=== PATIENT | female | born 1955 | race Caucasian/White ===

== ENCOUNTER 2016-06-16 20:14 | Inpatient (IN) | payer MEDICARE, MEDICAID ==
[~2016-06-16] VITALS: Ht 165.1 cm; Wt 135.2 kg
[2016-06-16 21:04] LABS: HEMATOCRIT. 31.5 % (36.0-48.0); HEMOGLOBIN. 9.8 g/dL (12.0-16.0); MEAN CORPUSCULAR HEMOGLOBIN 26.2 pg (28.0-32.0); MEAN CORPUSCULAR HGB CONC 31.2 g/dL (31.0-37.0); MEAN CORPUSCULAR VOLUME 83.8 fL (81.0-99.0); MEAN PLATELET VOLUME 8.1 fl (7.4-10.4); PLATELET 310 x1000/uL (130-400); RED BLOOD CELL COUNT 3.76 mill/uL (4.2-5.4); RED CELL DISTRIBUTION WIDTH 15.2 % (11.6-14.6); WHITE BLOOD COUNT 18.8 x1000/uL (4.5-11.0)
[2016-06-16 21:05] LABS: DIFFERENTIAL COMMENT 1
[2016-06-16 21:18] LABS: ALANINE AMINOTRANSFERASE 19 IU/L (13-61); ALBUMIN 3.4 g/dL (3.4-5.0); ANION GAP 14; CARBON DIOXIDE 25 mEq/L (21-32); CHLORIDE 101 mEq/L (98-107); INDEX HEMOLYSI 1 (1-3); INDEX ICTERIC 1 (1-4); INDEX LIPEMIC 1 (1-3); UREA NITROGEN BLOOD 40 mg/dL (7-21); eGFR 27 mL/min (>60)
[2016-06-16 21:56] LABS: ANISOCYTOSIS 1+; PLATELET ESTIMATE NORMAL
[2016-06-17] VITALS (7 sets, daily range): BP systolic 110–134; BP diastolic 62–84
[2016-06-17 00:03] LABS: CLARITY URINE CLOUDY (CLEAR); COLOR URINE YELLOW (YELLOW); GLUCOSE URINE NEGATIVE (NEGATIVE); KETONES URINE NEGATIVE (NEGATIVE); LEUKOCYTE ESTERASE URINE 3+ (NEGATIVE); NITRITE URINE NEGATIVE (NEGATIVE); OCCULT BLOOD URINE 1+ (NEGATIVE); PH URINE 6.5 (4.5-8.0); PROTEIN URINE NEGATIVE (NEGATIVE); SPECIFIC GRAVITY URINE 1.007 (1.005-1.030); UROBILINOGEN URINE 0.2 E.U./dL (0.2-1.0)
[2016-06-17] MEDS ORDERED: CEFTRIAXONE 2 G PREMIX 50 ML IV ONE (00:15)
[2016-06-17] MEDS ORDERED: SODIUM CHLORIDE 0.9% 1,000 ML IV ONE (00:45)
[2016-06-17 01:35] LABS: SQUAMOUS EPITHELIAL CELL URINE RARE /lpf (RARE/1+)
[2016-06-17 01:36] LABS: BACTERIA URINE 2+; RBC URINE 0-2 /hpf (0-2); WBC URINE 25-50 /hpf (0-2)
[2016-06-17] MEDS ORDERED: SIMV20TA6 PO (01:57)
[2016-06-17] MEDS ORDERED: ASPI-1035 PO (01:58)
[2016-06-17] MEDS ORDERED: OCD PO (02:21)
[2016-06-17] MEDS ORDERED: BENA20TA3 PO (02:21)
[2016-06-17] MEDS ORDERED: GLIP10TA10 PO (02:21)
[2016-06-17] MEDS ORDERED: RANI150C12 PO (02:21)
[2016-06-17] MEDS ORDERED: LISI2.5T47 PO (02:21)
[2016-06-17] MEDS ORDERED: ACET-2178 PO (02:21)
[2016-06-17] MEDS ORDERED: METF-246 PO (02:21)
[2016-06-17] MEDS ORDERED: LORA10TA7 PO (02:21)
[2016-06-17] MEDS ORDERED: NAPR-681 PO (02:21)
[2016-06-17] MEDS ORDERED: ALBU6.7H INH (02:21)
[2016-06-17] MEDS ORDERED: PIOG45TA PO (02:21)
[2016-06-17] MEDS ORDERED: DEXT 5%/0.45% NACL 1000ML 1,000 ML IV SCH (02:28)
[2016-06-17] MEDS ORDERED: DEXTROSE 50% WATER 50ML SYRINGE IV PRN (02:30)
[2016-06-17] MEDS ORDERED: MAGNESIUM/ALUMINUM HYDROXIDE/SIMETHICONE 30ML UDC PO PRN (02:30)
[2016-06-17] MEDS ORDERED: DIPHENHYDRAMINE 50MG/ML VIAL IV PRN (02:30)
[2016-06-17] MEDS ORDERED: CLONIDINE 0.1MG TABLET PO PRN (02:30)
[2016-06-17] MEDS ORDERED: ONDANSETRON HCL 4MG/2ML VIAL IV PRN (02:30)
[2016-06-17] MEDS ORDERED: LEVOFLOXACIN 500MG PREMIX 100 ML IV NR (04:00)
[2016-06-17] MEDS: BLOOD SUGAR DIAGNOSTIC STRIP TEST SCH ×4 (07:01→20:09)
[2016-06-17] MEDS: INSULIN LISPRO 100 UNITS/ML SUBCUT SCH ×4 (07:08→20:09)
[2016-06-17] MEDS: ACETAMINOPHEN 325MG TABLET PO PRN (18:34)
[2016-06-18] VITALS: BP 123/70
[2016-06-18] MEDS: LEVOFLOXACIN 250MG PREMIX 50 ML IV SCH (02:23)
[2016-06-18 03:18] VITALS: BP 103/57
[2016-06-18] MEDS: BLOOD SUGAR DIAGNOSTIC STRIP TEST SCH ×4 (06:32→20:11)
[2016-06-18 07:04] LABS: BASOPHILS % 0.3 % (0.0-2.0); EOSINOPHILS % 3.1 % (0.0-5.0); HEMATOCRIT. 29.2 % (36.0-48.0); HEMOGLOBIN. 9.4 g/dL (12.0-16.0); LYMPHOCYTES % 18.7 % (20.0-50.0); MEAN CORPUSCULAR VOLUME 84.3 fL (81.0-99.0); MEAN PLATELET VOLUME 8.5 fl (7.4-10.4); MONOCYTES % 9.4 % (2.0-8.0); NEUTROPHILS % 68.5 % (40.0-76.0); PLATELET 315 x1000/uL (130-400); RED BLOOD CELL COUNT 3.47 mill/uL (4.2-5.4); RED CELL DISTRIBUTION WIDTH 15.3 % (11.6-14.6)
[2016-06-18] MEDS: INSULIN LISPRO 100 UNITS/ML SUBCUT SCH ×4 (07:50→20:11)
[2016-06-18 08:00] VITALS: BP 110/67
[2016-06-18 08:14] LABS: MAGNESIUM 2.1 mg/dL (1.8-2.4)
[2016-06-18 12:00] VITALS: BP 112/70
[2016-06-18] MEDS ORDERED: BISACODYL 10MG SUPP PR NR (15:42)
[2016-06-18 16:00] VITALS: BP 105/69
[2016-06-18] MEDS: SODIUM CHLORIDE 0.9% 1,000 ML IV SCH (17:51)
[2016-06-18 20:00] VITALS: BP 108/72
[2016-06-18] MEDS: ACETAMINOPHEN 325MG TABLET PO PRN (23:45)
[2016-06-19] VITALS: BP 110/66
[2016-06-19] MEDS: LEVOFLOXACIN 250MG PREMIX 50 ML IV SCH (02:06)
[2016-06-19] MEDS: SODIUM CHLORIDE 0.9% 1,000 ML IV SCH ×2 (02:06→11:45)
[2016-06-19 04:05] VITALS: BP 105/62
[2016-06-19] MEDS: BLOOD SUGAR DIAGNOSTIC STRIP TEST SCH ×2 (06:24→12:24)
[2016-06-19 06:50] LABS: BASOPHILS % 0.5 % (0.0-2.0); EOSINOPHILS % 5.7 % (0.0-5.0); LYMPHOCYTES % 23.9 % (20.0-50.0); MEAN CORPUSCULAR HEMOGLOBIN 26.6 pg (28.0-32.0); MEAN CORPUSCULAR VOLUME 83.3 fL (81.0-99.0); MEAN PLATELET VOLUME 8.5 fl (7.4-10.4); MONOCYTES % 9.3 % (2.0-8.0); NEUTROPHILS % 60.6 % (40.0-76.0); PLATELET 325 x1000/uL (130-400); RED BLOOD CELL COUNT 3.37 mill/uL (4.2-5.4); RED CELL DISTRIBUTION WIDTH 15.3 % (11.6-14.6); WHITE BLOOD COUNT 8.9 x1000/uL (4.5-11.0)
[2016-06-19] MEDS: INSULIN LISPRO 100 UNITS/ML SUBCUT SCH ×2 (07:49→12:26)
[2016-06-19 08:00] VITALS: BP 104/52
[2016-06-19 08:02] LABS: CALCIUM 9.3 mg/dL (8.5-10.1)
[2016-06-19 12:00] VITALS: BP 122/68
[2016-06-19 13:56] VITALS: BP 122/68
== END 2016-06-19 15:15 | disposition home or self-care (01) | DRG 871 ==
LOC: ER 20:15 → 6WST 23:31
PROVIDERS: ADMIT Internal Medicine; ATTEND Internal Medicine
DX: A41.9 Sepsis, unspecified organism (principal); G93.41 Metabolic encephalopathy; N17.9 Acute kidney failure, unspecified; N39.0 Urinary tract infection, site not specified; Z68.42 Body mass index [BMI] 45.0-49.9, adult; E11.649 Type 2 diabetes mellitus with hypoglycemia without coma; E66.01 Morbid (severe) obesity due to excess calories; D64.9 Anemia, unspecified; M19.90 Unspecified osteoarthritis, unspecified site; I12.9 Hypertensive chronic kidney disease with stage 1 through stage 4 chronic kidney disease, or unspecified chronic kidney disease; N18.9 Chronic kidney disease, unspecified; E78.00 Pure hypercholesterolemia, unspecified; I25.10 Atherosclerotic heart disease of native coronary artery without angina pectoris; J45.909 Unspecified asthma, uncomplicated; K21.9 Gastro-esophageal reflux disease without esophagitis; Z82.49 Family history of ischemic heart disease and other diseases of the circulatory system; Z83.3 Family history of diabetes mellitus; Z87.442 Personal history of urinary calculi; Z98.51 Tubal ligation status
CPT/HCPCS: 36415; 71010; 74000; 80048; 80053; 81001; 81003; 82962; 83735; 85025; 87040; 87086; 93005; 96365; 99285; J0696; J1815; J1956; J3490; J7030; J7050

== ENCOUNTER 2018-06-08 05:03 | Inpatient (IN) | payer MEDICARE, MEDICAID ==
[~2018-06-08] VITALS: Ht 162.6 cm; Wt 133.8 kg
[~2018-06-08 05:03] MED LIST: ACET-2178 PO; ALBU6.7H INH; ASPI-1159 PO; BENA20TA10 PO; LORA10TA7 PO; METF-416 PO; NAPR-681 PO; OCD PO; PIOG45TA5 PO; RANI150C12 PO; SIMV20TA6 PO
[2018-06-08] MEDS ORDERED: METHYLPREDNISOLONE SOD SUCC 125 MG/2 ML VIAL IV STA (07:02)
[2018-06-08 07:14] LABS: BASOPHILS % 0.6 % (0.0-2.0); EOSINOPHILS % 4.1 % (0.0-5.0); HEMATOCRIT. 33.1 % (36.0-48.0); HEMOGLOBIN. 10.5 g/dL (12.0-16.0); LYMPHOCYTES % 21.8 % (20.0-50.0); MEAN CORPUSCULAR HEMOGLOBIN 27.1 pg (28.0-32.0); MEAN CORPUSCULAR VOLUME 85.3 fL (81.0-99.0); MEAN PLATELET VOLUME 8.1 fl (7.4-10.4); NEUTROPHILS % 66.5 % (40.0-76.0); PLATELET 252 x1000/uL (130-400); RED BLOOD CELL COUNT 3.88 mill/uL (4.2-5.4); RED CELL DISTRIBUTION WIDTH 15.2 % (11.6-14.6)
[2018-06-08] MEDS ORDERED: LEVOFLOXACIN 750MG PREMIX 150 ML IV ONE (07:15)
[2018-06-08] MEDS ORDERED: IPRATROPIUM/ALBUTEROL 0.5-3(2.5)MG/3ML NEB HHN ONE (07:15)
[2018-06-08 07:19] LABS: CHLORIDE 109 mEq/L (98-107)
[2018-06-08 07:23] LABS: ETHANOL BLOOD < 10 mg/dL
[2018-06-08 07:32] LABS: PARTIAL THROMBOPLASTIN TIME 29.6 sec (23.4-31.0); PROTHROMBIN TIME 10.4 sec (9.1-11.1)
[2018-06-08 08:31] LABS: BG BASE EXCESS -2.4 mmol/L (-2.0-2.0); BG CARBOXYHEMOGLOBIN 0.4 % (0.5-1.5); BG DEOXYHEMOGLOBIN 4.3 % (0.0-5.0); BG FRACTION INSPIRED OXYGEN 21; BG HCO3 ACT 22.3 mmol/L (22.0-26.0); BG OXYGEN SATURATION 95.7 % (92.0-98.5); BG OXYHEMOGLOBIN 95.3 % (94.0-97.0); BG PCO2 38.1 mmHg (35.0-45.0); BG PH 7.386 (7.350-7.450); BG PO2 84.7 mmHg (75.0-100.0); BG SAMPLE SITE RIGHT RADIAL; BG TOTAL HEMOGLOBIN 10.8 g/dL (12.0-18.0); BG VENT MODE ROOM AIR
[2018-06-08 11:38] LABS: *AMPHETAMINES SCREEN URINE NEGATIVE (NEGATIVE); *BARBITURATES SCREEN URINE NEGATIVE (NEGATIVE); *COCAINE SCREEN URINE NEGATIVE (NEGATIVE); METHADONE URINE SCREEN NEGATIVE (NEGATIVE); OPIATES URINE SCREEN NEGATIVE (NEGATIVE)
[2018-06-08 11:39] LABS: *BENZODIAZEPINES SCREEN URINE NEGATIVE (NEGATIVE); CANNABINOID URINE SCREEN NEGATIVE (NEGATIVE); PHENCYCLIDINE URINE SCREEN NEGATIVE (NEGATIVE)
[2018-06-08 13:38] VITALS: BP 136/73
[2018-06-08] MEDS ORDERED: DEXTROSE 50% WATER 50ML SYRINGE IV PRN (13:45)
[2018-06-08 15:32] VITALS: BP 136/73
[2018-06-08] MEDS ORDERED: IPRATROPIUM/ALBUTEROL 0.5-3(2.5)MG/3ML NEB HHN PRN (15:45)
[2018-06-08 16:00] VITALS: BP 133/63
[2018-06-08] MEDS: BLOOD SUGAR DIAGNOSTIC STRIP TEST SCH ×2 (16:39→21:00)
[2018-06-08] MEDS: IPRATROPIUM/ALBUTEROL 0.5-3(2.5)MG/3ML NEB HHN SCH (18:00)
[2018-06-08] MEDS: LORATADINE 10MG TABLET PO SCH (18:03)
[2018-06-08] MEDS: INSULIN LISPRO 100 UNITS/ML SUBCUT SCH ×2 (18:05→22:39)
[2018-06-08 20:00] VITALS: BP 135/66
[2018-06-08] MEDS: BUDESONIDE 0.5MG/2ML NEB HHN SCH (20:38)
[2018-06-08] MEDS: ALBUTEROL (0.5%) 2.5MG/0.5ML NEB HHN SCH (20:38)
[2018-06-08] MEDS: GUAIFENESIN 600MG ER TABLET PO SCH (21:24)
[2018-06-08] MEDS: METHYLPREDNISOLONE SOD SUCC 40 MG/ML VIAL IV SCH (21:24)
[2018-06-08] MEDS: ENOXAPARIN 40MG/0.4ML SYR SUBCUT SCH (21:24)
[2018-06-08] MEDS: FAMOTIDINE 20MG/2ML VIAL IV SCH (21:24)
[2018-06-09] VITALS: BP 167/84
[2018-06-09] MEDS: IPRATROPIUM/ALBUTEROL 0.5-3(2.5)MG/3ML NEB HHN SCH ×4 (01:09→21:48)
[2018-06-09 04:00] VITALS: BP 156/81
[2018-06-09] MEDS: BLOOD SUGAR DIAGNOSTIC STRIP TEST SCH ×4 (07:27→21:00)
[2018-06-09] MEDS: INSULIN LISPRO 100 UNITS/ML SUBCUT SCH ×4 (07:35→21:21)
[2018-06-09] MEDS: ALBUTEROL (0.5%) 2.5MG/0.5ML NEB HHN SCH ×2 (07:35)
[2018-06-09] MEDS: BUDESONIDE 0.5MG/2ML NEB HHN SCH ×2 (07:36→21:48)
[2018-06-09 08:17] VITALS: BP 141/70
[2018-06-09] MEDS: FAMOTIDINE 20MG/2ML VIAL IV SCH ×2 (09:20→21:01)
[2018-06-09] MEDS: LORATADINE 10MG TABLET PO SCH (09:20)
[2018-06-09] MEDS: METHYLPREDNISOLONE SOD SUCC 40 MG/ML VIAL IV SCH (09:20)
[2018-06-09] MEDS: GUAIFENESIN 600MG ER TABLET PO SCH ×2 (09:20→21:01)
[2018-06-09] MEDS: ENOXAPARIN 40MG/0.4ML SYR SUBCUT SCH ×2 (09:22→21:03)
[2018-06-09 12:00] VITALS: BP_SYST 138; BP_SYST 154; BP_DIAS 77; BP_DIAS 79
[2018-06-09] MEDS: LEVOFLOXACIN 500MG TABLET PO SCH (14:51)
[2018-06-09 16:00] VITALS: BP 138/79
[2018-06-09 20:00] VITALS: BP 146/70
[2018-06-09 20:51] LABS: CHLORIDE 107 mEq/L (98-107)
[2018-06-09 21:05] LABS: BASOPHILS % 0.1 % (0.0-2.0); HEMATOCRIT. 32.9 % (36.0-48.0); HEMOGLOBIN. 10.4 g/dL (12.0-16.0); LYMPHOCYTES % 8.5 % (20.0-50.0); MEAN CORPUSCULAR HEMOGLOBIN 26.9 pg (28.0-32.0); MEAN CORPUSCULAR VOLUME 85.6 fL (81.0-99.0); MEAN PLATELET VOLUME 8.4 fl (7.4-10.4); MONOCYTES % 5.5 % (2.0-8.0); NEUTROPHILS % 85.9 % (40.0-76.0); PLATELET 262 x1000/uL (130-400); RED BLOOD CELL COUNT 3.85 mill/uL (4.2-5.4); RED CELL DISTRIBUTION WIDTH 15.4 % (11.6-14.6)
[2018-06-10] VITALS: BP 116/59
[2018-06-10] MEDS ORDERED: ALBUTEROL (0.083%) 2.5MG/3ML NEB ONE (01:19)
[2018-06-10] MEDS: IPRATROPIUM/ALBUTEROL 0.5-3(2.5)MG/3ML NEB HHN SCH ×3 (01:25→14:17)
[2018-06-10 04:00] VITALS: BP 133/75
[2018-06-10] MEDS: BLOOD SUGAR DIAGNOSTIC STRIP TEST SCH ×2 (06:07→11:45)
[2018-06-10] MEDS: INSULIN LISPRO 100 UNITS/ML SUBCUT SCH ×2 (06:13→12:49)
[2018-06-10 08:00] VITALS: BP 134/76
[2018-06-10] MEDS: BUDESONIDE 0.5MG/2ML NEB HHN SCH (08:31)
[2018-06-10] MEDS: GUAIFENESIN 600MG ER TABLET PO SCH (09:42)
[2018-06-10] MEDS: LORATADINE 10MG TABLET PO SCH (09:42)
[2018-06-10] MEDS: FAMOTIDINE 20MG/2ML VIAL IV SCH (09:42)
[2018-06-10] MEDS: ENOXAPARIN 40MG/0.4ML SYR SUBCUT SCH (09:43)
[2018-06-10 12:00] VITALS: BP 131/68
[2018-06-10] MEDS: LEVOFLOXACIN 500MG TABLET PO SCH (12:14)
[2018-06-10] MEDS ORDERED: P50 MT (12:28)
[2018-06-10 14:26] VITALS: BP 131/68
== END 2018-06-10 15:30 | disposition home or self-care (01) | DRG 871 ==
LOC: ER 05:03 → 5WST 08:53 → EDBEDREQ 09:02 → ENRESERV 10:25
PROVIDERS: ADMIT Family Medicine; ATTEND Family Medicine
DX: A41.9 Sepsis, unspecified organism (principal); J96.00 Acute respiratory failure, unspecified whether with hypoxia or hypercapnia; N39.0 Urinary tract infection, site not specified; J44.0 Chronic obstructive pulmonary disease with (acute) lower respiratory infection; J44.1 Chronic obstructive pulmonary disease with (acute) exacerbation; J45.901 Unspecified asthma with (acute) exacerbation; I50.32 Chronic diastolic (congestive) heart failure; Z68.43 Body mass index [BMI] 50.0-59.9, adult; J20.9 Acute bronchitis, unspecified; E11.9 Type 2 diabetes mellitus without complications; E55.9 Vitamin D deficiency, unspecified; K21.9 Gastro-esophageal reflux disease without esophagitis; B96.89 Other specified bacterial agents as the cause of diseases classified elsewhere; E66.01 Morbid (severe) obesity due to excess calories; I11.0 Hypertensive heart disease with heart failure; I25.10 Atherosclerotic heart disease of native coronary artery without angina pectoris; Z82.49 Family history of ischemic heart disease and other diseases of the circulatory system; Z95.5 Presence of coronary angioplasty implant and graft
CPT/HCPCS: 36415; 36600; 71045; 80305; 80320; 82375; 82805; 82962; 83605; 83880; 84484; 87077; 87186; 87804; 93005; 94640; 96374; 96375; 99285; J1650; J1815; J1956; J2920; J2930; J3490; J7611; J7620; J7626; G0480

== ENCOUNTER 2018-07-26 05:38 | Inpatient (IN) | payer MEDICARE, MEDICAID ==
[~2018-07-26] VITALS: Ht 170.2 cm; Wt 129.4 kg
[~2018-07-26 05:38] MED LIST changes: -NAPR-681 PO; +P50 MT
[2018-07-26] MEDS ORDERED: METHYLPREDNISOLONE SOD SUCC 125 MG/2 ML VIAL IV STA (05:41)
[2018-07-26 06:12] LABS: BASOPHILS % 0.2 % (0.0-2.0); EOSINOPHILS % 1.1 % (0.0-5.0); HEMATOCRIT. 33.5 % (36.0-48.0); HEMOGLOBIN. 10.5 g/dL (12.0-16.0); LYMPHOCYTES % 12.6 % (20.0-50.0); MEAN CORPUSCULAR HEMOGLOBIN 26.1 pg (28.0-32.0); MEAN CORPUSCULAR VOLUME 82.9 fL (81.0-99.0); MEAN PLATELET VOLUME 8.3 fl (7.4-10.4); MONOCYTES % 1.3 % (2.0-8.0); NEUTROPHILS % 84.8 % (40.0-76.0); PLATELET 301 x1000/uL (130-400); RED BLOOD CELL COUNT 4.04 mill/uL (4.2-5.4); RED CELL DISTRIBUTION WIDTH 15.4 % (11.6-14.6)
[2018-07-26 06:19] LABS: CHLORIDE 108 mEq/L (98-107)
[2018-07-26] MEDS ORDERED: NITROGLYCERIN OINT 1GM/INCH UDPKT TD ONE (06:30)
[2018-07-26] MEDS ORDERED: ASPIRIN 81MG TABLET PO ONE (06:30)
[2018-07-26] MEDS ORDERED: FUROSEMIDE 40MG/4ML VIAL IV ONE (06:30)
[2018-07-26 06:40] LABS: BG BASE EXCESS -4.9 mmol/L (-2.0-2.0); BG BILEVEL POS AIRWAY PRESSURE 15/5; BG CARBOXYHEMOGLOBIN 0.3 % (0.5-1.5); BG DEOXYHEMOGLOBIN 1.7 % (0.0-5.0); BG FRACTION INSPIRED OXYGEN 40; BG HCO3 ACT 19.5 mmol/L (22.0-26.0); BG METHEMOGLOBIN 0.5 % (0.0-1.5); BG OXYGEN SATURATION 98.3 % (92.0-98.5); BG OXYHEMOGLOBIN 97.5 % (94.0-97.0); BG PH 7.377 (7.350-7.450); BG PO2 134.6 mmHg (75.0-100.0); BG SAMPLE SITE RIGHT RADIAL; BG TOTAL HEMOGLOBIN 10.4 g/dL (12.0-18.0); BG VENT MODE MASK - BIPAP
[2018-07-26] MEDS ORDERED: LEVOFLOXACIN 750MG PREMIX 150 ML IV ONE (06:45)
[2018-07-26 07:42] LABS: PARTIAL THROMBOPLASTIN TIME 34.8 sec (23.4-31.0); PROTHROMBIN TIME 10.5 sec (9.6-11.0)
[2018-07-26 08:43] LABS: CLARITY URINE CLEAR (CLEAR); COLOR URINE YELLOW (YELLOW); KETONES URINE NEGATIVE (NEGATIVE); LEUKOCYTE ESTERASE URINE TRACE (NEGATIVE); NITRITE URINE NEGATIVE (NEGATIVE); OCCULT BLOOD URINE NEGATIVE (NEGATIVE); PROTEIN URINE NEGATIVE (NEGATIVE); SPECIFIC GRAVITY URINE 1.007 (1.005-1.030); UROBILINOGEN URINE 0.2 E.U./dL (0.2-1.0)
[2018-07-26] MEDS ORDERED: MAGNESIUM/ALUMINUM HYDROXIDE/SIMETHICONE 30ML UDC PO PRN (13:30)
[2018-07-26] MEDS ORDERED: HYDROCODONE/ACETAMINOPHEN 5/325MG TABLET PO PRN (13:30)
[2018-07-26] MEDS ORDERED: DOCUSATE SODIUM 100MG CAPSULE PO PRN (13:30)
[2018-07-26] MEDS ORDERED: ONDANSETRON HCL 4MG/2ML INJ IV PRN (13:30)
[2018-07-26] MEDS ORDERED: ACETAMINOPHEN 650MG SUPP PR PRN (13:30)
[2018-07-26] MEDS ORDERED: DIPHENHYDRAMINE 50MG/ML VIAL IV PRN (13:30)
[2018-07-26] MEDS ORDERED: IPRATROPIUM/ALBUTEROL 0.5-3(2.5)MG/3ML NEB INH PRN (13:30)
[2018-07-26] MEDS ORDERED: HYDROCODONE/ACETAMINOPHEN 10/325MG TABLET PO PRN (13:30)
[2018-07-26] MEDS ORDERED: CLONIDINE 0.1MG TABLET PO PRN (13:30)
[2018-07-26] MEDS ORDERED: ACETAMINOPHEN 325MG TABLET PO PRN (13:30)
[2018-07-26] MEDS ORDERED: NA PHOS,M-B/NA PHOS,DI-BA ENEMA 118ML PR PRN (13:30)
[2018-07-26] MEDS ORDERED: ACETAMINOPHEN 650MG/20.3ML UDC GT PRN (13:30)
[2018-07-26] MEDS ORDERED: DEXTROSE 50% WATER 50ML SYRINGE IV PRN (13:30)
[2018-07-26] MEDS ORDERED: GUAIFENESIN 200MG/10ML SUGAR FREE UDC PO PRN (13:30)
[2018-07-26 14:20] VITALS: BP 112/55
[2018-07-26 16:00] VITALS: BP 114/63
[2018-07-26] MEDS ORDERED: INFLUENZA VIRUS VACCINE(AFLURIA) 0.5ML SYR IM ONE (16:00)
[2018-07-26] MEDS ORDERED: PNEUMOCOCCAL 23-VAL P-SAC VAC 0.5 ML IM ONE (16:00)
[2018-07-26] MEDS: LORATADINE 10MG TABLET PO SCH (17:56)
[2018-07-26] MEDS: BLOOD SUGAR DIAGNOSTIC STRIP TEST SCH ×2 (17:56→20:51)
[2018-07-26] MEDS: SODIUM CHLORIDE 0.9% INJ 3ML FLUSH IVF SCH ×2 (17:56→21:24)
[2018-07-26] MEDS ORDERED: GLIP10TA10 PO (18:07)
[2018-07-26] MEDS ORDERED: NAPR-1176 PO (18:07)
[2018-07-26] MEDS: INSULIN LISPRO 100 UNITS/ML SUBCUT SCH ×2 (18:33→21:26)
[2018-07-26 18:48] LABS: CREATINE KINASE MB FRACTION 1.3 ng/mL (0.5-3.6)
[2018-07-26 20:00] VITALS: BP 120/61
[2018-07-26] MEDS: FAMOTIDINE 20MG/2ML VIAL IV SCH (20:46)
[2018-07-26] MEDS: AMOXICILLIN/POTASSIUM CLAVULANATE 500/125MG TAB PO SCH (20:47)
[2018-07-26] MEDS: ENOXAPARIN 30MG/0.3ML SYR SUBCUT SCH (20:47)
[2018-07-27] VITALS: BP 111/62
[2018-07-27] MEDS: BUDESONIDE 0.5MG/2ML NEB HHN SCH ×2 (00:17→09:49)
[2018-07-27 01:22] LABS: CREATINE KINASE 162 IU/L (26-192); CREATINE KINASE MB FRACTION 1.4 ng/mL (0.5-3.6)
[2018-07-27 04:00] VITALS: BP 110/63
[2018-07-27] MEDS: SODIUM CHLORIDE 0.9% INJ 3ML FLUSH IVF SCH ×3 (05:41→21:03)
[2018-07-27] MEDS: BLOOD SUGAR DIAGNOSTIC STRIP TEST SCH ×4 (06:10→20:55)
[2018-07-27] MEDS: INSULIN LISPRO 100 UNITS/ML SUBCUT SCH ×4 (06:34→21:06)
[2018-07-27 08:00] VITALS: BP 102/58
[2018-07-27] MEDS ORDERED: POTASSIUM CHLORIDE 20MEQ TABLET SR PO PRN (08:00)
[2018-07-27 08:07] LABS: HEMATOCRIT. 27.8 % (36.0-48.0); HEMOGLOBIN. 8.7 g/dL (12.0-16.0); MEAN CORPUSCULAR VOLUME 82.8 fL (81.0-99.0); MEAN PLATELET VOLUME 8.8 fl (7.4-10.4); PLATELET 299 x1000/uL (130-400); RED BLOOD CELL COUNT 3.35 mill/uL (4.2-5.4); RED CELL DISTRIBUTION WIDTH 15.1 % (11.6-14.6)
[2018-07-27 08:24] LABS: CHLORIDE 106 mEq/L (98-107)
[2018-07-27 08:35] LABS: LDL CHOLESTEROL 63 mg/dL (5-100)
[2018-07-27 08:37] LABS: HDL CHOLESTEROL 46 mg/dL (40-59)
[2018-07-27] MEDS: FUROSEMIDE 40MG/4ML VIAL IV SCH (09:00)
[2018-07-27] MEDS: AMOXICILLIN/POTASSIUM CLAVULANATE 500/125MG TAB PO SCH ×2 (09:34→20:52)
[2018-07-27] MEDS: LORATADINE 10MG TABLET PO SCH (09:34)
[2018-07-27] MEDS: ENOXAPARIN 30MG/0.3ML SYR SUBCUT SCH ×2 (09:35→20:53)
[2018-07-27] MEDS: IPRATROPIUM/ALBUTEROL 0.5-3(2.5)MG/3ML NEB INH SCH ×3 (09:49→21:39)
[2018-07-27 10:56] LABS: *AMPHETAMINES SCREEN URINE NEGATIVE (NEGATIVE)
[2018-07-27 10:57] LABS: *BARBITURATES SCREEN URINE NEGATIVE (NEGATIVE); *BENZODIAZEPINES SCREEN URINE NEGATIVE (NEGATIVE); *COCAINE SCREEN URINE NEGATIVE (NEGATIVE); METHADONE URINE SCREEN NEGATIVE (NEGATIVE); OPIATES URINE SCREEN NEGATIVE (NEGATIVE); PHENCYCLIDINE URINE SCREEN NEGATIVE (NEGATIVE)
[2018-07-27 10:58] LABS: CANNABINOID URINE SCREEN NEGATIVE (NEGATIVE)
[2018-07-27 12:00] VITALS: BP 127/64
[2018-07-27 14:25] LABS: PLATELET ESTIMATE NORMAL
[2018-07-27 16:00] VITALS: BP 119/63
[2018-07-27] MEDS ORDERED: DEXTROSE 50% WATER 50ML SYRINGE IV PRN (16:15)
[2018-07-27] MEDS: PIPERACILLIN/TAZ 2.25G PREMIX 50 ML IV SCH ×2 (16:33→22:33)
[2018-07-27] MEDS: FLUTICASONE/VILANTEROL 200-25 BLST.W.DEV ORI SCH (17:05)
[2018-07-27 20:00] VITALS: BP 113/52
[2018-07-27] MEDS: FAMOTIDINE 20MG/2ML VIAL IV SCH (20:52)
[2018-07-28] VITALS: BP 141/76
[2018-07-28] MEDS: IPRATROPIUM/ALBUTEROL 0.5-3(2.5)MG/3ML NEB INH SCH ×2 (01:42→08:26)
[2018-07-28 04:00] VITALS: BP 115/60
[2018-07-28] MEDS: PIPERACILLIN/TAZ 2.25G PREMIX 50 ML IV SCH ×2 (05:38→11:04)
[2018-07-28] MEDS: SODIUM CHLORIDE 0.9% INJ 3ML FLUSH IVF SCH (05:38)
[2018-07-28] MEDS: INSULIN LISPRO 100 UNITS/ML SUBCUT SCH ×2 (06:11→12:39)
[2018-07-28] MEDS: BLOOD SUGAR DIAGNOSTIC STRIP TEST SCH ×2 (06:11→11:18)
[2018-07-28 07:57] VITALS: BP 121/63
[2018-07-28] MEDS: FUROSEMIDE 40MG/4ML VIAL IV SCH (08:34)
[2018-07-28] MEDS: LORATADINE 10MG TABLET PO SCH (08:34)
[2018-07-28] MEDS: AMOXICILLIN/POTASSIUM CLAVULANATE 500/125MG TAB PO SCH (08:35)
[2018-07-28] MEDS: ENOXAPARIN 30MG/0.3ML SYR SUBCUT SCH (08:37)
[2018-07-28] MEDS: FLUTICASONE/VILANTEROL 200-25 BLST.W.DEV ORI SCH (11:10)
[2018-07-28 11:58] VITALS: BP 110/57
[2018-07-28 14:03] VITALS: BP 110/57
[2018-07-28] MEDS ORDERED: PNEUMOCOCCAL 23-VAL P-SAC VAC 0.5 ML IM ONE (15:00)
== END 2018-07-28 14:45 | disposition home or self-care (01) | DRG 871 ==
LOC: ER 05:38 → EDBEDREQTM 07:07 → 8WST 09:14 → EDBEDREQ 09:17 → ENRESERV 13:08
PROVIDERS: ADMIT Family Medicine; ATTEND Family Medicine
PROC: 5A09357 Assistance with Respiratory Ventilation, Less than 24 Consecutive Hours, Continuous Positive Airway Pressure (ICD-10-PCS; principal; 2018-07-26)
DX: A41.50 Gram-negative sepsis, unspecified (principal); J96.01 Acute respiratory failure with hypoxia; E44.1 Mild protein-calorie malnutrition; J45.901 Unspecified asthma with (acute) exacerbation; I13.0 Hypertensive heart and chronic kidney disease with heart failure and stage 1 through stage 4 chronic kidney disease, or unspecified chronic kidney disease; Z68.41 Body mass index [BMI] 40.0-44.9, adult; E66.01 Morbid (severe) obesity due to excess calories; E11.22 Type 2 diabetes mellitus with diabetic chronic kidney disease; E78.5 Hyperlipidemia, unspecified; I25.10 Atherosclerotic heart disease of native coronary artery without angina pectoris; I50.9 Heart failure, unspecified; J43.9 Emphysema, unspecified; L40.9 Psoriasis, unspecified; N18.9 Chronic kidney disease, unspecified; Z95.5 Presence of coronary angioplasty implant and graft; Z79.899 Other long term (current) drug therapy; Z79.82 Long term (current) use of aspirin
CPT/HCPCS: 36415; 36600; 71045; 78582; 80061; 80305; 82375; 82550; 82553; 82805; 82962; 83605; 83880; 83930; 84484; 85379; 87077; 87186; 90686; 90732; 93005; 93306; 93970; 94640; 94660; 99291; A9558; C1893; J1200; J1650; J1815; J1940; J1956; J2543; J2930; J3490; J7040; J7620; J7626

== ENCOUNTER 2023-10-05 04:24 | Inpatient (IN) | payer MEDICARE ==
[~2023-10-05] VITALS: Ht 162.6 cm; Wt 112.5 kg
[~2023-10-05 04:24] MED LIST changes: -ACET-2178 PO; +ALBU18HF2 IH; -ALBU6.7H INH; +ALLO100T MT; +ASCO500C15 PO; -ASPI-1159 PO; +ASPI-1497 PO; +ATOR20TA65 MT; -BENA20TA10 PO; +FAMO40TA7 MT; +FLUT1DIS3 INH; +FURO-151 MT; +GLIP10TA10 PO; +LISI2.5T47 MT; -METF-416 PO; +METO-396 MT; +MONT-46 MT; -P50 MT; -PIOG45TA5 PO; -RANI150C12 PO; -SIMV20TA6 PO; +TC1U15 TP; +TOPUD PO; +vitamin d3 PO
[2023-10-05 05:30] LABS: HEMATOCRIT. 42.6 % (36.0-48.0); HEMOGLOBIN. 13.7 g/dL (12.0-16.0); MEAN CORPUSCULAR HEMOGLOBIN 28.8 pg (28.0-32.0); MEAN CORPUSCULAR HGB CONC 32.1 g/dL (31.0-37.0); MEAN CORPUSCULAR VOLUME 89.7 fL (81.0-99.0); MEAN PLATELET VOLUME 8.8 fl (7.4-10.4); PLATELET 211 x1000/uL (130-400); RED BLOOD CELL COUNT 4.75 mill/uL (4.2-5.4); RED CELL DISTRIBUTION WIDTH 14.8 % (11.6-14.6); WHITE BLOOD COUNT 7.4 x1000/uL (4.5-11.0)
[2023-10-05 05:32] LABS: CHLORIDE 104 mEq/L (98-107); POTASSIUM 4.6 mEq/L (3.5-5.1); SODIUM 136 mEq/L (136-145)
[2023-10-05 05:33] LABS: CARBON DIOXIDE 22 mEq/L (21-32)
[2023-10-05 05:34] LABS: CALCIUM 8.6 mg/dL (8.7-10.4)
[2023-10-05 05:36] LABS: DIFFERENTIAL COMMENT 1
[2023-10-05 05:38] LABS: CREATININE 1.5 mg/dL (0.6-1.0); GLUCOSE 153 mg/dL (70-105); UREA NITROGEN BLOOD 21 mg/dL (9-23)
[2023-10-05 05:45] VITALS: PULSE 103; RESP 18; O2SAT 98
[2023-10-05] MEDS: ALBUTEROL (0.083%) 2.5MG/3ML NEB HHN STA (05:45)
[2023-10-05] MEDS: IPRATROPIUM BROMIDE (0.02%) 0.5MG/2.5ML NEB HHN STA (05:45)
[2023-10-05] MEDS: METHYLPREDNISOLONE SOD SUCC 125MG/2ML (ACT-O-VIAL) IV STA (06:00)
[2023-10-05 08:20] LABS: TROPONIN I HIGH SENSITIVITY 39 ng/L (3.0-34)
[2023-10-05] MEDS ORDERED: ONDANSETRON HCL 4MG/2ML INJ IV PRN (10:15)
[2023-10-05] MEDS ORDERED: ACETAMINOPHEN 325MG TABLET PO PRN (10:15)
[2023-10-05] MEDS ORDERED: DEXTROSE 50% WATER 50ML SYRINGE IV PRN (10:30)
[2023-10-05] MEDS: FUROSEMIDE 40MG/4ML VIAL IVP SCH (10:37)
[2023-10-05 10:47] VITALS: BP 138/63; PULSE 95; RESP 16; TEMP 97.3
[2023-10-05] MEDS: BLOOD SUGAR DIAGNOSTIC STRIP TEST SCH (11:40)
[2023-10-05] MEDS ORDERED: BLOOD SUGAR DIAGNOSTIC STRIP TEST SCH (11:40)
[2023-10-05 12:00] VITALS: BP 138/63; PULSE 95; RESP 18; TEMP 97.3
[2023-10-05 12:18] LABS: HEPATITIS B SURFACE ANTIGEN NEGATIVE (Negative)
[2023-10-05 12:40] LABS: HEPATITIS C AB NON REACTIVE (Neg) (Negative)
[2023-10-05 13:12] VITALS: PULSE 80; RESP 20
[2023-10-05] MEDS: IPRATROPIUM/ALBUTEROL 0.5-3(2.5)MG/3ML NEB HHN SCH (13:12)
[2023-10-05 13:25] LABS: PLATELET ESTIMATE NORMAL
[2023-10-05] MEDS: INSULIN LISPRO 100 UNITS/ML SUBCUT SCH (13:40)
[2023-10-05] MEDS: INSULIN GLARGINE 100 UNITS/ML SUBCUT SCH (18:44)
[2023-10-05 19:50] VITALS: PULSE 85; RESP 19; O2SAT 96
[2023-10-05 20:00] VITALS: BP 130/82; PULSE 91; RESP 18; TEMP 97
[2023-10-05] MEDS: ENOXAPARIN 30MG/0.3ML SYR SUBCUT SCH (21:09)
[2023-10-06] VITALS (7 sets, daily range): BP systolic 101–133; BP diastolic 50–84; PULSE 79–95; RESP 17–20; TEMP 97–97.9; O2SAT 96–99
[2023-10-06] MEDS: METOLAZONE 2.5MG TABLET PO NR (10:45)
== END 2023-10-06 12:45 | disposition home or self-care (01) | DRG 291 ==
LOC: ER 04:38 → 7EST 07:39 → EDBEDREQ 07:42 → EDBEDREQTM 07:42
PROVIDERS: ADMIT Internal Medicine; ATTEND Internal Medicine
DX: I11.0 Hypertensive heart disease with heart failure (principal); I50.33 Acute on chronic diastolic (congestive) heart failure; J96.00 Acute respiratory failure, unspecified whether with hypoxia or hypercapnia; Z68.41 Body mass index [BMI] 40.0-44.9, adult; E11.65 Type 2 diabetes mellitus with hyperglycemia; E66.9 Obesity, unspecified; J45.909 Unspecified asthma, uncomplicated
CPT/HCPCS: 36415; 71045; 80048; 82962; 83036; 83880; 84484; 85025; 86705; 87340; 94640; 99285; J1650; J1815; J1940; J2919

== ENCOUNTER 2024-04-13 20:35 | Inpatient (IN) | payer MEDICARE, MEDICAID ==
[~2024-04-13] VITALS: Ht 162.6 cm; Wt 137.4 kg
[~2024-04-13 20:35] MED LIST changes: +ASCO500C14 PO; -ASCO500C15 PO; -FURO-151 MT; -GLIP10TA10 PO; +GLIP10TA17 PO; +INSU100I28 SQ; +P20 MT; +PRED10TA23 MT; +PRED5TAB MT
[2024-04-13 21:26] LABS: BASOPHILS % 0.5 % (0.0-2.0); DIFFERENTIAL COMMENT 0; EOSINOPHILS % 0.7 % (0.0-5.0); HEMATOCRIT. 31.7 % (36.0-48.0); HEMOGLOBIN. 10.1 g/dL (12.0-16.0); LYMPHOCYTES % 10.4 % (20.0-50.0); MEAN CORPUSCULAR HGB CONC 31.9 g/dL (31.0-37.0); MEAN CORPUSCULAR VOLUME 84.6 fL (81.0-99.0); MEAN PLATELET VOLUME 7.4 fl (7.4-10.4); MONOCYTES % 6.1 % (2.0-8.0); NEUTROPHILS % 82.3 % (40.0-76.0); PLATELET 525 x1000/uL (130-400); RED BLOOD CELL COUNT 3.75 mill/uL (4.2-5.4); RED CELL DISTRIBUTION WIDTH 18.1 % (11.6-14.6); WHITE BLOOD COUNT 16.9 x1000/uL (4.5-11.0)
[2024-04-13 21:33] LABS: CHLORIDE 98 mEq/L (98-107); POTASSIUM 5.2 mEq/L (3.5-5.1); SODIUM 126 mEq/L (136-145)
[2024-04-13 21:34] LABS: CALCIUM 8.3 mg/dL (8.7-10.4); CARBON DIOXIDE 22 mEq/L (21-32)
[2024-04-13 21:39] LABS: CREATININE 1.7 mg/dL (0.6-1.0); GLUCOSE 203 mg/dL (70-105); UREA NITROGEN BLOOD 31 mg/dL (9-23)
[2024-04-13 21:41] LABS: TROPONIN I HIGH SENSITIVITY 9 ng/L (3.0-34)
[2024-04-13] MEDS: DILTIAZEM HCL 5MG/ML 5ML VIAL IV ONE (22:34)
[2024-04-13 23:15] LABS: CLARITY URINE TURBID (CLEAR); COLOR URINE DARK YELLOW (YELLOW); GLUCOSE URINE NEGATIVE (NEGATIVE); KETONES URINE NEGATIVE (NEGATIVE); LEUKOCYTE ESTERASE URINE 3+ (NEGATIVE); NITRITE URINE NEGATIVE (NEGATIVE); OCCULT BLOOD URINE 3+ (NEGATIVE); PROTEIN URINE 3+ (NEGATIVE); SPECIFIC GRAVITY URINE 1.016 (1.005-1.030)
[2024-04-13] MEDS: CEFTRIAXONE 1GM/50ML 50 ML IV ONE (23:54)
[2024-04-13 23:59] LABS: TROPONIN I HIGH SENSITIVITY 8 ng/L (3.0-34)
[2024-04-14] VITALS (8 sets, daily range): BP systolic 95–116; BP diastolic 64–93; PULSE 84–123; RESP 23–31; TEMP 36.55848–36.89184; O2SAT 95–100
[2024-04-14 00:03] LABS: WBC URINE TNTC /hpf (0-2)
[2024-04-14 00:08] LABS: BACTERIA URINE 4+; SQUAMOUS EPITHELIAL CELL URINE NONE SEEN /lpf (RARE/1+)
[2024-04-14] MEDS: MORPHINE SULFATE 2 MG/ML INJ (NOT FOR IM USE) IV ONE (00:36)
[2024-04-14] MEDS: ONDANSETRON HCL 4MG/2ML INJ IV ONE (00:53)
[2024-04-14] MEDS ORDERED: GUAIFENESIN 200MG/10ML SUGAR FREE UDC PO PRN (01:15)
[2024-04-14] MEDS ORDERED: DEXTROSE 50% WATER 50ML SYRINGE IV PRN (01:15)
[2024-04-14] MEDS: SODIUM ZIRCONIUM CYCLOSILICATE 10GM/PACKET PO NR (02:00)
[2024-04-14] MEDS: SODIUM CHLORIDE 0.9% 500 ML IV SCH (02:00)
[2024-04-14 02:37] LABS: IRON 31 ug/dL (50-170)
[2024-04-14 02:39] LABS: D-DIMER 3.6 mg/L FEU (<0.50); PROTHROMBIN TIME 11.5 sec (9.6-11.0)
[2024-04-14 02:40] LABS: PHOSPHORUS 3.5 mg/dL (2.5-4.9); TOTAL IRON BINDING CAPACITY 308 ug/dl (250-425)
[2024-04-14 03:05] LABS: FERRITIN 208 ng/mL (10-291); FOLIC ACID (FOLATE) SERUM 9.71 ng/mL (>5.38)
[2024-04-14 03:06] LABS: VITAMIN B12 SERUM 980 pg/mL (211-911)
[2024-04-14 04:38] LABS: *AMPHETAMINES SCREEN URINE NEGATIVE (NEGATIVE); *BARBITURATES SCREEN URINE NEGATIVE (NEGATIVE); *BENZODIAZEPINES SCREEN URINE NEGATIVE (NEGATIVE); *COCAINE SCREEN URINE NEGATIVE (NEGATIVE); METHADONE URINE SCREEN NEGATIVE (NEGATIVE)
[2024-04-14 04:39] LABS: CANNABINOID URINE SCREEN NEGATIVE (NEGATIVE); ECSTASY MDMA SCREEN URINE NEGATIVE (NEGATIVE); OPIATES URINE SCREEN NEGATIVE (NEGATIVE); PHENCYCLIDINE URINE SCREEN NEGATIVE (NEGATIVE)
[2024-04-14] MEDS: MAGNESIUM 2 G PREMIX 50 ML IV NR (06:28)
[2024-04-14] MEDS: DILTIAZEM HCL 30MG TABLET PO NR (06:32)
[2024-04-14] MEDS: BLOOD SUGAR DIAGNOSTIC STRIP TEST SCH (06:50)
[2024-04-14] MEDS: INSULIN LISPRO 100 UNITS/ML SUBCUT SCH (07:20)
[2024-04-14 08:06] LABS: CREATINE KINASE MB FRACTION 1.3 ng/mL (0.5-3.6); TROPONIN I HIGH SENSITIVITY 9 ng/L (3.0-34)
[2024-04-14 08:09] LABS: CREATINE KINASE 23 IU/L (34-145)
[2024-04-14] MEDS: ENOXAPARIN 120MG/0.8ML SYR SUBCUT SCH (08:40)
[2024-04-14] MEDS: ALLOPURINOL 100 MG TABLET PO SCH (08:40)
[2024-04-14] MEDS: ASPIRIN 81MG EC TABLET PO SCH (08:41)
[2024-04-14] MEDS: CALCIUM CARBONATE/VITAMIN D3 500MG TABLET PO SCH (08:41)
[2024-04-14] MEDS: METOPROLOL TARTRATE 25MG TABLET PO SCH (08:41)
[2024-04-14] MEDS ORDERED: ENOXAPARIN 40MG/0.4ML SYR SUBCUT SCH (09:00)
[2024-04-14] MEDS: CEFTRIAXONE 1GM/50ML 50 ML IV SCH (09:22)
[2024-04-14] MEDS: IPRATROPIUM/ALBUTEROL 0.5-3(2.5)MG/3ML NEB HHN PRN (10:58)
[2024-04-14 16:45] LABS: CREATINE KINASE MB FRACTION 1.5 ng/mL (0.5-3.6)
[2024-04-14] MEDS: DILTIAZEM HCL 5MG/ML 5ML VIAL IV NR (18:52)
[2024-04-14] MEDS: FAMOTIDINE 20MG TABLET PO SCH (21:07)
[2024-04-14] MEDS: METOPROLOL TARTRATE 50MG TABLET PO SCH (21:09)
[2024-04-14] MEDS: ATORVASTATIN CALCIUM 20MG TABLET PO SCH (21:09)
[2024-04-14] MEDS ORDERED: FURO40TA5 PO (23:00)
[2024-04-15] VITALS (41 sets, daily range): BP systolic 85–133; BP diastolic 47–98; PULSE 111–150; RESP 19–38; TEMP 36.55848–36.78072; O2SAT 85–100
[2024-04-15] MEDS: DILTIAZEM HCL 5MG/ML 5ML VIAL IV NR (06:47)
[2024-04-15 07:40] LABS: CALCIUM 8.5 mg/dL (8.7-10.4); POTASSIUM 4.6 mEq/L (3.5-5.1)
[2024-04-15 07:44] LABS: T4 FREE 1.59 ng/dL (0.89-1.76); THYROID STIMULATING HORMONE 5.69 uIU/mL (0.55-4.78)
[2024-04-15 07:45] LABS: CREATININE 1.9 mg/dL (0.6-1.0)
[2024-04-15] MEDS: AMIODARONE 200MG TABLET PO SCH (08:24)
[2024-04-15 09:16] LABS: BASOPHILS % 0.3 % (0.0-2.0); EOSINOPHILS % 0.5 % (0.0-5.0); HEMATOCRIT. 31.5 % (36.0-48.0); HEMOGLOBIN. 10.2 g/dL (12.0-16.0); MEAN CORPUSCULAR HEMOGLOBIN 27.3 pg (28.0-32.0); MEAN CORPUSCULAR HGB CONC 32.3 g/dL (31.0-37.0); MEAN CORPUSCULAR VOLUME 84.7 fL (81.0-99.0); MEAN PLATELET VOLUME 7.6 fl (7.4-10.4); MONOCYTES % 7.2 % (2.0-8.0); PLATELET 528 x1000/uL (130-400); RED BLOOD CELL COUNT 3.72 mill/uL (4.2-5.4); WHITE BLOOD COUNT 16.7 x1000/uL (4.5-11.0)
[2024-04-15] MEDS ORDERED: AMIODARONE HCL 150 MG in DEXT 5% WATER 100 ML IV ONE (10:00)
[2024-04-15] MEDS ORDERED: IPRATROPIUM BROMIDE (0.02%) 0.5MG/2.5ML NEB ONE (10:08)
[2024-04-15] MEDS: FUROSEMIDE 40MG/4ML VIAL IVP SCH ×2 (10:15→22:26)
[2024-04-15] MEDS: METHYLPREDNISOLONE SOD SUCC 125MG/2ML (ACT-O-VIAL) IV NR (10:22)
[2024-04-15] MEDS: FUROSEMIDE 40MG/4ML VIAL IVP NR (10:23)
[2024-04-15] MEDS ORDERED: LIDOCAINE HCL 1% 10 MG/ML 10ML VIAL ONE (11:09)
[2024-04-15] MEDS: AMIODARONE 150MG/100ML PREMIX IV NR (11:57)
[2024-04-15] MEDS: AMIODARONE HCL 900 MG in DEXT 5% WATER 482 ML IV PRN (11:58)
[2024-04-15] MEDS ORDERED: BUDESONIDE 0.25MG/2ML NEB HHN SCH (12:00)
[2024-04-15] MEDS ORDERED: DEXTROSE 50% WATER 50ML SYRINGE IV PRN (20:30)
[2024-04-15] MEDS: BLOOD SUGAR DIAGNOSTIC STRIP TEST SCH (21:00)
[2024-04-15 21:04] LABS: BG CARBOXYHEMOGLOBIN 0.6 % (0.5-1.5); BG DEOXYHEMOGLOBIN 1.1 % (0.0-5.0); BG FRACTION INSPIRED OXYGEN 28; BG HCO3 ACT 12.2 mmol/L (21.0-28.0); BG METHEMOGLOBIN 0.3 % (0.5-1.5); BG OXYGEN SATURATION 98.9 % (94.0-98.0); BG PH 7.381 (7.350-7.450); BG SAMPLE SITE RIGHT RADIAL; BG TOTAL HEMOGLOBIN 11.1 g/dL (12.0-16.0); BG VENT MODE NASAL CANNULA
[2024-04-15] MEDS: INSULIN LISPRO 100 UNITS/ML SUBCUT SCH (22:27)
[2024-04-16] VITALS (83 sets, daily range): BP systolic 48–151; BP diastolic 22–124; PULSE 57–115; RESP 16–36; TEMP 36.44736–36.78072; O2SAT 0–100
[2024-04-16] MEDS: ONDANSETRON HCL 4MG/2ML INJ IV PRN (05:45)
[2024-04-16 08:14] LABS: ALBUMIN 3.1 g/dL (3.2-4.8)
[2024-04-16 08:29] LABS: PREALBUMIN < 5.0 mg/dl (10.0-40.0)
[2024-04-16] MEDS: AMMONIUM LACTATE 12% LOTION 240ML TOP SCH (12:04)
[2024-04-16 15:34] LABS: BG BASE EXCESS -18.6 mmol/L (-2.0-3.0); BG CARBOXYHEMOGLOBIN 0.6 % (0.5-1.5); BG DEOXYHEMOGLOBIN 0.3 % (0.0-5.0); BG FRACTION INSPIRED OXYGEN 100; BG HCO3 ACT 8.8 mmol/L (21.0-28.0); BG METHEMOGLOBIN 0.3 % (0.5-1.5); BG OXYGEN SATURATION 99.7 % (94.0-98.0); BG OXYHEMOGLOBIN 98.8 % (94.0-98.0); BG PCO2 26.4 mmHg (32.0-45.0); BG PH 7.142 (7.350-7.450); BG PO2 571.7 mmHg (83.0-108.0); BG SAMPLE SITE RIGHT RADIAL; BG TOTAL HEMOGLOBIN 10.8 g/dL (12.0-16.0); BG VENT MODE VENT - AC
[2024-04-16] MEDS: SODIUM BICARBONATE 8.4% 50MEQ/50ML SYR IV NR (16:31)
[2024-04-16] MEDS: SODIUM BICARBONATE 150 MEQ in DEXTROSE 5% WATER 850 ML IV SCH (16:32)
[2024-04-16] MEDS: FUROSEMIDE 40MG/4ML VIAL IVP SCH ×2 (16:37→17:54)
[2024-04-16] MEDS: FAMOTIDINE 20MG TABLET PO SCH (16:37)
[2024-04-16] MEDS: PHENYLEPHRINE 50MG/250ML PMX 250 ML IV PRN (16:57)
[2024-04-16] MEDS: DEXMEDETOMIDINE 400 MCG/100 ML 100 ML IV PRN (16:58)
[2024-04-16] MEDS: NOREPINEPHRINE 32 MG in DEXT 5% WATER 218 ML IV PRN (18:47)
[2024-04-16] MEDS: PHENYLEPHRINE 100 MG in DEXT 5% WATER 240 ML IV PRN (19:15)
[2024-04-16] MEDS: PIPERACILLIN/TAZO 3.375G/100ML 100 ML IV SCH (21:06)
[2024-04-16 22:19] LABS: BG CARBOXYHEMOGLOBIN 0.6 % (0.5-1.5); BG DEOXYHEMOGLOBIN 0.2 % (0.0-5.0); BG FRACTION INSPIRED OXYGEN 60; BG HCO3 ACT 8.4 mmol/L (21.0-28.0); BG METHEMOGLOBIN 0.3 % (0.5-1.5); BG OXYGEN SATURATION 99.8 % (94.0-98.0); BG OXYHEMOGLOBIN 98.9 % (94.0-98.0); BG PCO2 22.2 mmHg (32.0-45.0); BG PH 7.194 (7.350-7.450); BG SAMPLE SITE RIGHT BRACHIAL; BG TOTAL HEMOGLOBIN 11.5 g/dL (12.0-16.0); BG VENT MODE VENT - AC
[2024-04-16 22:38] LABS: HEMOGLOBIN. 10.2 g/dL (12.0-16.0); MEAN CORPUSCULAR HEMOGLOBIN 26.5 pg (28.0-32.0); MEAN CORPUSCULAR HGB CONC 27.5 g/dL (31.0-37.0); MEAN CORPUSCULAR VOLUME 96.4 fL (81.0-99.0); MEAN PLATELET VOLUME 8.6 fl (7.4-10.4); PLATELET 485 x1000/uL (130-400); RED BLOOD CELL COUNT 3.84 mill/uL (4.2-5.4); RED CELL DISTRIBUTION WIDTH 20.2 % (11.6-14.6)
[2024-04-16 22:42] LABS: ALBUMIN 3.2 g/dL (3.2-4.8); BILIRUBIN TOTAL 1.4 mg/dL (0.1-1.0); PROTEIN TOTAL 7.3 g/dL (6.0-8.3)
[2024-04-16 22:43] LABS: CHLORIDE 96 mEq/L (98-107); SODIUM 130 mEq/L (136-145)
[2024-04-16 22:46] LABS: CALCIUM 9.8 mg/dL (8.7-10.4)
[2024-04-16 22:47] LABS: DIFFERENTIAL COMMENT 1; WHITE BLOOD COUNT 83.2 x1000/uL (4.5-11.0)
[2024-04-16 22:50] LABS: GLUCOSE 82 mg/dL (70-105)
[2024-04-16 22:51] LABS: UREA NITROGEN BLOOD 44 mg/dL (9-23)
[2024-04-16 23:11] LABS: ANISOCYTOSIS 1+; PLATELET ESTIMATE INCREASED
[2024-04-16 23:11] LABS: POTASSIUM 6.5 mEq/L (3.5-5.1)
[2024-04-16 23:12] LABS: PHOSPHORUS 8.1 mg/dL (2.5-4.9)
[2024-04-16 23:13] LABS: CARBON DIOXIDE < 10 mEq/L (21-32)
[2024-04-16 23:15] LABS: ALANINE AMINOTRANSFERASE 2122 IU/L (10-49); ASPARTATE AMINOTRANSFERASE > 6000 IU/L (<34)
[2024-04-17] VITALS (144 sets, daily range): BP systolic 49–163; BP diastolic 19–127; PULSE 53–173; RESP 15–39; TEMP 36.6696–37.89192; O2SAT 60–100
[2024-04-17] MEDS: DEXTROSE 50% WATER 50ML SYRINGE IV NR ×2 (00:28→20:27)
[2024-04-17] MEDS: SODIUM BICARBONATE 8.4% 50MEQ/50ML SYR IV NR ×4 (00:28→20:02)
[2024-04-17] MEDS: INSULIN REGULAR (HUMULIN R) 1000UNITS/10ML VIAL IV NR ×2 (00:29→20:03)
[2024-04-17] MEDS: SODIUM CHLORIDE 0.9% 1,000 ML IV SCH (00:29)
[2024-04-17] MEDS: SODIUM BICARBONATE 150 MEQ in DEXTROSE 5% WATER 850 ML IV SCH ×2 (03:24→20:13)
[2024-04-17] MEDS: MIDAZOLAM HCL 2 MG/2 ML VIAL IV NR (05:01)
[2024-04-17] MEDS: PROPOFOL 10MG/ML 100ML 100 ML IV PRN (05:02)
[2024-04-17] MEDS: BUMETANIDE 1MG/4ML VIAL IV NR (07:08)
[2024-04-17] MEDS: PIPERACILLIN/TAZO 3.375G/50ML IV SCH (08:33)
[2024-04-17] MEDS ORDERED: CEFTRIAXONE 1GM/50ML 50 ML IV SCH (09:00)
[2024-04-17 09:36] LABS: BG BASE EXCESS -15.2 mmol/L (-2.0-3.0); BG CARBOXYHEMOGLOBIN 1.3 % (0.5-1.5); BG DEOXYHEMOGLOBIN 3.5 % (0.0-5.0); BG FRACTION INSPIRED OXYGEN 60; BG HCO3 ACT 11.1 mmol/L (21.0-28.0); BG METHEMOGLOBIN 0.3 % (0.5-1.5); BG OXYGEN SATURATION 96.4 % (94.0-98.0); BG OXYHEMOGLOBIN 94.9 % (94.0-98.0); BG PCO2 27.9 mmHg (32.0-45.0); BG PH 7.216 (7.350-7.450); BG PO2 93.3 mmHg (83.0-108.0); BG SAMPLE SITE LEFT RADIAL; BG TOTAL HEMOGLOBIN 12.3 g/dL (12.0-16.0); BG VENT MODE VENT - P/C
[2024-04-17 12:56] LABS: HEMATOCRIT. 42.2 % (36.0-48.0); HEMOGLOBIN. 12.6 g/dL (12.0-16.0); MEAN CORPUSCULAR HEMOGLOBIN 27.5 pg (28.0-32.0); MEAN CORPUSCULAR HGB CONC 29.8 g/dL (31.0-37.0); MEAN CORPUSCULAR VOLUME 92.4 fL (81.0-99.0); MEAN PLATELET VOLUME 8.7 fl (7.4-10.4); PLATELET 285 x1000/uL (130-400); RED BLOOD CELL COUNT 4.57 mill/uL (4.2-5.4); RED CELL DISTRIBUTION WIDTH 19.6 % (11.6-14.6)
[2024-04-17 13:14] LABS: DIFFERENTIAL COMMENT 1
[2024-04-17] MEDS ORDERED: HEPARIN 1000 UNITS/ML 10ML ONE (14:57)
[2024-04-17] MEDS ORDERED: LIDOCAINE HCL 1% 10 MG/ML 10ML VIAL ONE (14:57)
[2024-04-17] MEDS: VASOPRESSIN 20 UNIT in SODIUM CHLORIDE 0.9% 99 ML IV PRN (15:12)
[2024-04-17 15:55] LABS: HEMATOCRIT. 35.9 % (36.0-48.0); HEMOGLOBIN. 10.9 g/dL (12.0-16.0); MEAN CORPUSCULAR HEMOGLOBIN 26.4 pg (28.0-32.0); MEAN CORPUSCULAR HGB CONC 30.5 g/dL (31.0-37.0); MEAN CORPUSCULAR VOLUME 86.6 fL (81.0-99.0); MEAN PLATELET VOLUME 8.5 fl (7.4-10.4); PLATELET 246 x1000/uL (130-400); RED BLOOD CELL COUNT 4.14 mill/uL (4.2-5.4); RED CELL DISTRIBUTION WIDTH 18.9 % (11.6-14.6)
[2024-04-17 16:03] LABS: WHITE BLOOD COUNT 69.9 x1000/uL (4.5-11.0)
[2024-04-17 16:04] LABS: CHLORIDE 93 mEq/L (98-107); DIFFERENTIAL COMMENT 1; POTASSIUM 5.7 mEq/L (3.5-5.1); SODIUM 132 mEq/L (136-145)
[2024-04-17 16:05] LABS: CALCIUM 6.9 mg/dL (8.7-10.4); CARBON DIOXIDE 14 mEq/L (21-32)
[2024-04-17 16:10] LABS: CREATININE 3.4 mg/dL (0.6-1.0); GLUCOSE 156 mg/dL (70-105); UREA NITROGEN BLOOD 51 mg/dL (9-23)
[2024-04-17 16:12] LABS: PHOSPHORUS 6.7 mg/dL (2.5-4.9)
[2024-04-17 17:17] LABS: PLATELET ESTIMATE NORMAL
[2024-04-17 17:18] LABS: ANISOCYTOSIS 1+
[2024-04-17] MEDS: FUROSEMIDE 40MG/4ML VIAL IVP SCH (17:23)
[2024-04-17 18:59] LABS: CALCIUM 8.5 mg/dL (8.7-10.4); CARBON DIOXIDE 12 mEq/L (21-32); CHLORIDE 93 mEq/L (98-107); SODIUM 133 mEq/L (136-145)
[2024-04-17 19:02] LABS: CREATININE 3.2 mg/dL (0.6-1.0)
[2024-04-17 19:03] LABS: GLUCOSE 63 mg/dL (70-105)
[2024-04-17 19:04] LABS: UREA NITROGEN BLOOD 46 mg/dL (9-23)
[2024-04-17 19:05] LABS: PHOSPHORUS 7.7 mg/dL (2.5-4.9)
[2024-04-17 19:20] LABS: HEPATITIS B SURFACE ANTIGEN NEGATIVE (Negative)
[2024-04-17 19:40] LABS: HEPATITIS A AB IGM NEGATIVE (Negative)
[2024-04-17 19:41] LABS: HEPATITIS B CORE AB IGM NEGATIVE (Negative); HEPATITIS C AB NON REACTIVE (Neg) (Negative)
[2024-04-17] MEDS: MEROPENEM 500MG/50ML 50 ML IV SCH (20:01)
[2024-04-17] MEDS: CALCIUM GLUCONATE 100MG/ML 10ML VIAL IV NR (20:13)
[2024-04-17] MEDS: ALBUMIN HUMAN 25GM/500ML (5%) IV NR (21:11)
[2024-04-17] MEDS: HYDROCORTISONE SOD SUCCINATE 100 MG/2 ML VIAL IV NR (21:15)
[2024-04-17] MEDS: FAMOTIDINE 20MG TABLET PO SCH (21:16)
[2024-04-17] MEDS: ACETAMINOPHEN 325MG TABLET PO PRN (21:41)
[2024-04-17 21:49] LABS: ANISOCYTOSIS 1+; PLATELET ESTIMATE NORMAL
[2024-04-18] VITALS (115 sets, daily range): BP systolic 32–126; BP diastolic 14–115; PULSE 110–152; RESP 0–35; TEMP 36.114–37.11408; O2SAT 0–100
[2024-04-18] MEDS: VANCOMYCIN 1G PREMIX 200 ML IV SCH (00:16)
[2024-04-18] MEDS: AMIODARONE 150MG/100ML D5W 100 ML IV NR (01:29)
[2024-04-18 01:30] LABS: BG BASE EXCESS -14.2 mmol/L (-2.0-3.0); BG CARBOXYHEMOGLOBIN 0.6 % (0.5-1.5); BG DEOXYHEMOGLOBIN 1.1 % (0.0-5.0); BG FRACTION INSPIRED OXYGEN 60; BG HCO3 ACT 10.9 mmol/L (21.0-28.0); BG METHEMOGLOBIN 0.3 % (0.5-1.5); BG OXYGEN SATURATION 98.9 % (94.0-98.0); BG PCO2 23.7 mmHg (32.0-45.0); BG PH 7.281 (7.350-7.450); BG PO2 139.9 mmHg (83.0-108.0); BG SAMPLE SITE ALINE; BG TOTAL HEMOGLOBIN 9.8 g/dL (12.0-16.0); BG TOTAL RESPIRATORY RATE 31 b/min; BG VENT MODE VENT - P/C
[2024-04-18] MEDS: ALBUMIN HUMAN 25GM/500ML (5%) IV NR (01:31)
[2024-04-18] MEDS: EPINEPHRINE 5 MG in SODIUM CHLORIDE 0.9% 245 ML IV PRN (01:32)
[2024-04-18 01:36] LABS: CARBON DIOXIDE 12 mEq/L (21-32); CHLORIDE 90 mEq/L (98-107); POTASSIUM 5.7 mEq/L (3.5-5.1); SODIUM 129 mEq/L (136-145)
[2024-04-18 01:37] LABS: CALCIUM 6.6 mg/dL (8.7-10.4)
[2024-04-18] MEDS: LABETALOL 5MG/ML 4ML INJ IV NR ×2 (01:40→02:04)
[2024-04-18 01:41] LABS: CREATININE 3.5 mg/dL (0.6-1.0); GLUCOSE 219 mg/dL (70-105); HEMATOCRIT. 29.3 % (36.0-48.0); HEMOGLOBIN. 9.1 g/dL (12.0-16.0); MEAN CORPUSCULAR HEMOGLOBIN 26.9 pg (28.0-32.0); MEAN CORPUSCULAR HGB CONC 31.1 g/dL (31.0-37.0); MEAN CORPUSCULAR VOLUME 86.4 fL (81.0-99.0); MEAN PLATELET VOLUME 8.8 fl (7.4-10.4); PLATELET 134 x1000/uL (130-400); RED BLOOD CELL COUNT 3.39 mill/uL (4.2-5.4); RED CELL DISTRIBUTION WIDTH 18.5 % (11.6-14.6)
[2024-04-18 01:42] LABS: UREA NITROGEN BLOOD 50 mg/dL (9-23)
[2024-04-18 01:44] LABS: DIFFERENTIAL COMMENT 1; PHOSPHORUS 6.6 mg/dL (2.5-4.9)
[2024-04-18 01:46] LABS: WHITE BLOOD COUNT 50.6 x1000/uL (4.5-11.0)
[2024-04-18 02:20] LABS: ANISOCYTOSIS 1+; PLATELET ESTIMATE NORMAL
[2024-04-18] MEDS: DEXTROSE 50% WATER 50ML SYRINGE IV NR (02:42)
[2024-04-18] MEDS: SODIUM BICARBONATE 8.4% 50MEQ/50ML SYR IV NR ×2 (02:43→13:16)
[2024-04-18] MEDS: CALCIUM CHLORIDE 1GM/10ML SYR IV NR (02:43)
[2024-04-18] MEDS: INSULIN REGULAR (HUMULIN R) 1000UNITS/10ML VIAL IV NR (02:53)
[2024-04-18 07:50] LABS: LACTIC ACID 14.5 mmol/L (0.4-2.0)
[2024-04-18] MEDS: BUDESONIDE 0.5MG/2ML NEB HHN SCH (08:15)
[2024-04-18 10:53] LABS: POTASSIUM 4.1 mEq/L (3.5-5.1)
[2024-04-18 10:59] LABS: CREATININE 2.6 mg/dL (0.6-1.0)
[2024-04-18 11:03] LABS: MEAN CORPUSCULAR HEMOGLOBIN 26.9 pg (28.0-32.0); MEAN CORPUSCULAR HGB CONC 29.8 g/dL (31.0-37.0); MEAN CORPUSCULAR VOLUME 90.5 fL (81.0-99.0); MEAN PLATELET VOLUME 8.3 fl (7.4-10.4); PLATELET 82 x1000/uL (130-400); RED BLOOD CELL COUNT 2.98 mill/uL (4.2-5.4); RED CELL DISTRIBUTION WIDTH 19.3 % (11.6-14.6)
[2024-04-18 11:32] LABS: DIFFERENTIAL COMMENT 1
[2024-04-18] MEDS: CALCIUM GLUCONATE 1GM PREMIX 50 ML IV NR (13:08)
[2024-04-18 14:02] LABS: BG CARBOXYHEMOGLOBIN 0.5 % (0.5-1.5); BG DEOXYHEMOGLOBIN 0.9 % (0.0-5.0); BG FRACTION INSPIRED OXYGEN 60; BG HCO3 ACT 11.8 mmol/L (21.0-28.0); BG METHEMOGLOBIN 0.3 % (0.5-1.5); BG OXYGEN SATURATION 99.1 % (94.0-98.0); BG OXYHEMOGLOBIN 98.3 % (94.0-98.0); BG PCO2 27.7 mmHg (32.0-45.0); BG PH 7.249 (7.350-7.450); BG PO2 150.8 mmHg (83.0-108.0); BG SAMPLE SITE ALINE; BG TOTAL HEMOGLOBIN 8.8 g/dL (12.0-16.0); BG VENT MODE VENT - P/C
[2024-04-19] VITALS (70 sets, daily range): BP systolic 41–127; BP diastolic 21–92; PULSE 28–149; RESP 21–31; TEMP 36.55848–37.28076; O2SAT 42–98
[2024-04-19] MEDS: EPINEPHRINE 10 MG in SODIUM CHLORIDE 0.9% 240 ML IV PRN (03:45)
[2024-04-19] MEDS: DOPAMINE 400MG/250ML PREMIX 250 ML IV PRN (04:39)
[2024-04-19 06:26] LABS: HEMATOCRIT. 23.9 % (36.0-48.0); MEAN CORPUSCULAR HEMOGLOBIN 26.5 pg (28.0-32.0); MEAN CORPUSCULAR HGB CONC 28.2 g/dL (31.0-37.0); MEAN CORPUSCULAR VOLUME 94.1 fL (81.0-99.0); MEAN PLATELET VOLUME 8.7 fl (7.4-10.4); PLATELET 66 x1000/uL (130-400); RED BLOOD CELL COUNT 2.54 mill/uL (4.2-5.4); RED CELL DISTRIBUTION WIDTH 19.7 % (11.6-14.6)
[2024-04-19 06:38] LABS: CHLORIDE 87 mEq/L (98-107); POTASSIUM 5.2 mEq/L (3.5-5.1); SODIUM 128 mEq/L (136-145)
[2024-04-19 06:39] LABS: CALCIUM 6.7 mg/dL (8.7-10.4)
[2024-04-19 06:44] LABS: CREATININE 3.2 mg/dL (0.6-1.0); GLUCOSE 286 mg/dL (70-105); UREA NITROGEN BLOOD 39 mg/dL (9-23)
[2024-04-19 06:52] LABS: CARBON DIOXIDE < 10 mEq/L (21-32)
[2024-04-19 06:59] LABS: HEMOGLOBIN. 6.7 g/dL (12.0-16.0); WHITE BLOOD COUNT 48.4 x1000/uL (4.5-11.0)
[2024-04-19 07:00] LABS: DIFFERENTIAL COMMENT 1
[2024-04-19] MEDS: DOPAMINE 800MG PREMIX (DOUBLE) 250 ML IV PRN (07:03)
[2024-04-19] MEDS: EPINEPHRINE 10 MG in DEXT 5% WATER 240 ML IV PRN (08:03)
[2024-04-19 12:32] LABS: BG BASE EXCESS -23.2 mmol/L (-2.0-3.0); BG CARBOXYHEMOGLOBIN 0.7 % (0.5-1.5); BG DEOXYHEMOGLOBIN 6.9 % (0.0-5.0); BG FRACTION INSPIRED OXYGEN 50; BG HCO3 ACT 6.5 mmol/L (21.0-28.0); BG METHEMOGLOBIN 0.3 % (0.5-1.5); BG OXYHEMOGLOBIN 92.1 % (94.0-98.0); BG PCO2 28.5 mmHg (32.0-45.0); BG PH 6.973 (7.350-7.450); BG PO2 88.8 mmHg (83.0-108.0); BG SAMPLE SITE ALINE; BG TOTAL HEMOGLOBIN 6.2 g/dL (12.0-16.0); BG TOTAL RESPIRATORY RATE 28 b/min; BG VENT MODE VENT - P/C
[2024-04-19 13:15] LABS: ANISOCYTOSIS 2+; NUCLEATED RED BLOOD CELLS 5 /100 WBC; PLATELET ESTIMATE MARKEDLY DECREASED
[2024-04-19] MEDS: SODIUM BICARBONATE 8.4% 50MEQ/50ML SYR IV NR (13:45)
[2024-04-19 17:13] LABS: ANISOCYTOSIS 2+; PLATELET ESTIMATE DECREASED
== END 2024-04-19 17:30 | DRG 853 ==
LOC: ER 20:35 → 3WST 22:57 → CVICU 04-16 15:09
PROVIDERS: ADMIT Internal Medicine; ATTEND Internal Medicine
PROC: 02HV33Z Insertion of Infusion Device into Superior Vena Cava, Percutaneous Approach (ICD-10-PCS; 2024-04-15)
PROC: B548ZZA Ultrasonography of Superior Vena Cava, Guidance (ICD-10-PCS; 2024-04-15)
PROC: 0JB90ZZ Excision of Buttock Subcutaneous Tissue and Fascia, Open Approach (ICD-10-PCS; principal; 2024-04-16)
PROC: 5A1945Z Respiratory Ventilation, 24-96 Consecutive Hours (ICD-10-PCS; 2024-04-16)
PROC: 0BH17EZ Insertion of Endotracheal Airway into Trachea, Via Natural or Artificial Opening (ICD-10-PCS; 2024-04-16)
PROC: 05HM33Z Insertion of Infusion Device into Right Internal Jugular Vein, Percutaneous Approach (ICD-10-PCS; 2024-04-17)
PROC: B543ZZA Ultrasonography of Right Jugular Veins, Guidance (ICD-10-PCS; 2024-04-17)
PROC: 04HY32Z Insertion of Monitoring Device into Lower Artery, Percutaneous Approach (ICD-10-PCS; 2024-04-18)
PROC: 5A1D70Z Performance of Urinary Filtration, Intermittent, Less than 6 Hours Per Day (ICD-10-PCS; 2024-04-18)
PROC: 5A12012 Performance of Cardiac Output, Single, Manual (ICD-10-PCS; 2024-04-19)
DX: A41.9 Sepsis, unspecified organism (principal); G93.41 Metabolic encephalopathy; L89.323 Pressure ulcer of left buttock, stage 3; L89.313 Pressure ulcer of right buttock, stage 3; R65.21 Severe sepsis with septic shock; J96.21 Acute and chronic respiratory failure with hypoxia; I50.33 Acute on chronic diastolic (congestive) heart failure; E87.1 Hypo-osmolality and hyponatremia; I13.0 Hypertensive heart and chronic kidney disease with heart failure and stage 1 through stage 4 chronic kidney disease, or unspecified chronic kidney disease; I48.92 Unspecified atrial flutter; N17.9 Acute kidney failure, unspecified; E87.20 Acidosis, unspecified; Z68.43 Body mass index [BMI] 50.0-59.9, adult; Z20.822 Contact with and (suspected) exposure to COVID-19; I46.8 Cardiac arrest due to other underlying condition; D64.9 Anemia, unspecified; D75.838 Other thrombocytosis; J44.89 Other specified chronic obstructive pulmonary disease; E11.22 Type 2 diabetes mellitus with diabetic chronic kidney disease; K72.90 Hepatic failure, unspecified without coma; L85.3 Xerosis cutis; Z51.5 Encounter for palliative care; N18.30 Chronic kidney disease, stage 3 unspecified; Z66 Do not resuscitate; E66.01 Morbid (severe) obesity due to excess calories; N30.90 Cystitis, unspecified without hematuria; E87.5 Hyperkalemia; E11.51 Type 2 diabetes mellitus with diabetic peripheral angiopathy without gangrene; I48.0 Paroxysmal atrial fibrillation; M10.9 Gout, unspecified; Z74.01 Bed confinement status; Z79.4 Long term (current) use of insulin; Z79.82 Long term (current) use of aspirin; Z79.899 Other long term (current) drug therapy
CPT/HCPCS: 31500; 36415; 36556; 36573; 36600; 71045; 76937; 80048; 80053; 80061; 80305; 81003; 82040; 82375; 82550; 82553; 82607; 82728; 82746; 82805; 82962; 83036; 83540; 83550; 83605; 83735; 83880; 83930; 83935; 84100; 84134; 84145; 84300; 84439; 84443; 84478; 84484; 85025; 85379; 86705; 86709; 87070; 87077; 87186; 87340; 87426; 90935; 93005; 93306; 93970; 94002; 94003; 94070; 94640; 99285; A4606; C1725; C1752; C1893; J0282; J0610; J0696; J1265; J1644; J1650; J1720; J1815; J1940; J2003; J2185; J2250; J2270; J2405; J2543; J2704; J2919; J3370; J3475; J3490; J7050; J7060; J7070; J7626; P9041; Q9957